=== PATIENT | male | born 2000 | race Caucasian/White ===

== ENCOUNTER 2022-01-09 15:36 | Emergency (ER) | payer OTHER ==
[~2022-01-09] VITALS: Ht 180.3 cm; Wt 95.0 kg
[2022-01-09 15:45] VITALS: BP 126/76
[2022-01-09] MEDS ORDERED: MAG-55 MT (19:02)
[2022-01-09] MEDS ORDERED: FAMO40TA70 MT (19:02)
== END 2022-01-09 19:32 | disposition home or self-care (01) ==
LOC: ER 15:36
DX: R07.89 Other chest pain (principal); R07.81 Pleurodynia; K21.9 Gastro-esophageal reflux disease without esophagitis; R94.31 Abnormal electrocardiogram [ECG] [EKG]; K31.84 Gastroparesis; F12.90 Cannabis use, unspecified, uncomplicated
CPT/HCPCS: 71045; 93005; 99283